=== PATIENT | female | born 1960 | race Caucasian/White ===

== ENCOUNTER → 2017-03-20 | Outpatient (CLI) | payer MEDICARE, MEDICAID ==
[~2017-03-20] MED LIST: ALTACE 10MG TAB10 MG PO; ASMANEX TW0.22 MG/A1 IH; ASPIRIN 81M81 MG/TA2 PO; CELEXA40 MG PO; DEMADEX 20MG20 M1 PO; DESYREL 50MG50 MG PO; DIFLUCAN 100MG100 MG PO; JANUMXR1000-50 PO; K-DUR20 MEQ PO; NAPROSYN500 MG PO; NORCO 325 MG-51 TAB PO; PERCOCET 325 MG1 TA2 PO; PROAIR HFA0.09 MG/AC IH; SENOKOT S 50 MG1 TAB PO; SPECTAZOLE 1% C15 GM TP; ZOCOR 20MG20 MG PO; ZYRTEC 10MG10 MG PO
== END ==
LOC: MC.RAD 14:00
DX: Z12.31 Encounter for screening mammogram for malignant neoplasm of breast (principal)
CPT/HCPCS: G0202

== ENCOUNTER → 2019-11-11 | Outpatient (CLI) | payer MEDICARE | LOC: MC.RAD 13:00 | DX: C50.912 Malignant neoplasm of unspecified site of left female breast (principal); N63.10 Unspecified lump in the right breast, unspecified quadrant; Z98.890 Other specified postprocedural states ==

== ENCOUNTER → 2020-01-16 | Outpatient (CLI) | payer MEDICARE ==
[~2020-01-16] MED LIST changes: +COLACE 100100 MG/CAP PO; +DESYREL DIVIDO150 M1 PO; +FLEXERIL 1010 MG/TAB PO; +JANUMET 1000 MG1 TA1 PO; +LEXAPRO20 MG PO; +NORCO 325 MG-7.1 TAB PO; +VITAMIN D31000 IU PO
== END ==
LOC: ZCOL.LAB 20:23
DX: T81.42XA Infection following a procedure, deep incisional surgical site, initial encounter (principal)

== ENCOUNTER → 2020-02-06 | Outpatient (CLI) | payer MEDICARE | LOC: ZCOL.LAB 16:15 | DX: T14.8XXA Other injury of unspecified body region, initial encounter (principal) ==

== ENCOUNTER → 2020-02-06 | Outpatient (CLI) | payer MEDICARE ==
[~2020-02-06] MED LIST changes: +ALDACTONE 25MG25 M1 PO; +BACTRIM DS 8001 TAB PO; +BASAGLAR K100 UNIT/1 SQ; +DULCOLAX STOOL100 MG PO; +FLONASE NASAL S16 GM NS; +FREESTYLE PREC1 EAC5 MC; +GLUCOSE TEST ST1 DEV MC; +LANCETS MC; +ONCE DAILY1 TA1 PO
== END ==
LOC: COL.LAB 08:00 → SDCO 02-09 07:30 → EDSTATUS 02-09 12:30 → SDCO 02-09 12:30
DX: Z20.828 Contact with and (suspected) exposure to other viral communicable diseases (principal)

== ENCOUNTER → 2020-02-10 | Outpatient (CLI) | payer MEDICARE ==
[~2020-02-10] MED LIST changes: -ALDACTONE 25MG25 M1 PO; -BACTRIM DS 8001 TAB PO; -BASAGLAR K100 UNIT/1 SQ; -DULCOLAX STOOL100 MG PO; -FLONASE NASAL S16 GM NS; -FREESTYLE PREC1 EAC5 MC; -GLUCOSE TEST ST1 DEV MC; -LANCETS MC; -ONCE DAILY1 TA1 PO
== END ==
LOC: ZCOL.LAB 17:14
DX: T81.42XA Infection following a procedure, deep incisional surgical site, initial encounter (principal); Z90.11 Acquired absence of right breast and nipple

== ENCOUNTER 2020-03-08 10:57 | Emergency (ER) | payer MEDICARE, MEDICAID ==
[~2020-03-08] VITALS: Ht 167.6 cm; Wt 130.0 kg
[2020-03-08 11:05] VITALS: TEMP 98.3
[2020-03-08 12:12] LABS: ALBUMIN 3.5 gm/dL (3.5-5.0); BILIRUBIN,TOTAL 1.4 mg/dL (0.0-1.0); C-REACTIVE PROTEIN 1.7 mg/dL (0.0-0.9); CALCIUM 9.3 mg/dL (8.4-10.2); CREATININE, serum 0.74 (0.52-1.25); POTASSIUM 3.8 mmol/L (3.4-5.0); TOTAL PROTEIN 7.9 gm/dL (6.4-8.2)
[2020-03-08 12:14] LABS: BASO % 0.9 % (0.0-2.0); EOS # 0.1 (0.0-0.7); EOS % 3.1 % (0-4.0); GRAN # 1.9 (1.4-6.5); GRAN % 60.3 % (42.2-75.2); HEMATOCRIT 37.9 % (37.0-47.0); HEMOGLOBIN 12.1 g/dl (12.5-16.0); LYMPH # 0.8 (1.2-3.4); LYMPH % 23.8 % (20.0-51.0); MEAN CELL VOLUME 91 fl (80.0-100.0); MEAN CORPUSCULAR HEMOGLOBIN 29 pg (27.0-31.0); MEAN CORPUSCULAR HGB CONC 32 g/dl (33.0-37.0); MEAN PLATELET VOLUME 11.1 fl (7.4-10.4); MONO # 0.4 (0.1-0.6); MONO % 11.3 % (1.7-9.3); PLATELET COUNT 83 K/mm3 (130-400); RED BLOOD COUNT 4.17 M/mm3 (4.10-5.30); REDCELL DISTRIBUTION WIDTH-CV 14.7 % (11.5-14.5)
[2020-03-08 13:52] LABS: ARTERIAL BLD GAS O2 SATURATION 96.1 % (92-100); ARTERIAL BLD GAS TCO2 CT 24.8; ARTERIAL BLOOD GAS BASE EXCESS 0.2 (-2-2); ARTERIAL BLOOD GAS HCO3 23.7 meq/L (22-26); ARTERIAL BLOOD GAS PCO2 34.8 mmHg (35-45); ARTERIAL BLOOD GAS PO2 78.7 mmHg (80-100); ARTERIAL BLOOD GAS pH 7.45 (7.35-7.45)
[2020-03-08 15:18] VITALS: BP 136/88; PULSE 87
== END 2020-03-08 15:05 | disposition home or self-care (01) ==
LOC: COL.ER 10:57
PROVIDERS: Family Medicine
DX: R18.8 Other ascites (principal); Z85.3 Personal history of malignant neoplasm of breast; Z88.8 Allergy status to other drugs, medicaments and biological substances; Z79.84 Long term (current) use of oral hypoglycemic drugs
CPT/HCPCS: Q9967

== ENCOUNTER 2020-04-03 05:39 | Observation (INO) | payer MEDICARE, MEDICAID ==
[2020-04-03] VITALS (7 sets, daily range): BP systolic 152–204; BP diastolic 59–100; PULSE 81–92; TEMP 97.7–98.1
[~2020-04-03] VITALS: Ht 167.6 cm; Wt 117.6 kg
[2020-04-03] MEDS ORDERED: FLONASE NASAL S16 GM NS (06:10)
[2020-04-03] MEDS ORDERED: ALDACTONE 25MG25 M1 PO (06:11)
[2020-04-03] MEDS ORDERED: BACTRIM DS 8001 TAB PO (06:11)
--- NOTE | 2020-04-03 06:30 | NUR ---
Patient lists an allergy to tape. Reaction is a rash. When asked if she will need paper tape for her IV, she states that the normal IV tape will be fine.
--- NOTE | 2020-04-03 06:35 | NUR ---
Contacted anesthesia associates regarding patient's blood glucose of 387. Per Ajay Suggs CRNA, hold off on starting patient's IV for surgery until her anesthesia provider (Silas Garza CRNA) arrives and can make a decision regarding her blood sugar.
--- NOTE | 2020-04-03 06:43 | NUR ---
Re-checked patient's blood glucose for confirmation, it reads 427. Patient is more lethargic in this interaction, states she is having a hard time waking up/staying awake. Attempted to call Dr. Ferrer to notify, had to leave a voicemail.
--- NOTE | 2020-04-03 06:58 | NUR ---
ASUNCION received from Silas Garza for BMP and to start pre-op NS at 150 ml/hr. Dr. Ferrer calls back and orders a hospitalist consult, which he states he will call. BMP is drawn by lab. Dr. Ferrer will come to see the patient.
[2020-04-03 07:15] LABS: CALCIUM 9.2 mg/dL (8.4-10.2); CREATININE, serum 0.92 (0.52-1.25)
--- NOTE | 2020-04-03 07:54 | NUR ---
Patient rounding completed. Patient denies any needs at this time. She awakens easily to voice and hold conversation with staff.
--- NOTE | 2020-04-03 08:10 | NUR ---
Dr. Ferrer comes and speaks with the patient. He states that the hospitalist, Dr. Stokes, will be coming to evaluate the patient.
--- NOTE | 2020-04-03 08:57 | NUR ---
Report is given to CARIE Louis at this time. She denies any questions.
--- NOTE | 2020-04-03 09:12 | NUR ---
Patient is transferred to room 344 via cart. She ambulates to the restroom in her room to void. Voids a large amount of clear, yellow urine. She settles in to her bed and care is handed off to CARIE Louis.
[2020-04-03] MEDS ORDERED: DULCOLAX STOOL100 MG PO (09:27)
[2020-04-03] MEDS ORDERED: FLEXERIL 1010 MG/TAB PO (09:30)
[2020-04-03] MEDS ORDERED: ONCE DAILY1 TA1 PO (09:34)
--- NOTE | 2020-04-03 19:33 | NUR ---
Patient sitting up in chair. Very kind. Tolerating meals, denies pain. Blood sugars slowly coming down. insulin per orders. made aware today of sugars. Patient Blood pressure elevated. Corinne Resendez notifed and home meds re ordered. Patient IV to INT. She has been up to the bathroom. Steady on her feet. Report to jacques
--- NOTE | 2020-04-03 21:09 | NUR ---
Resting in bed. Assessment complete. Lungs clear. Heart sounds normal. Bowels active x4. Pulses present throughout. Bilateral lower edema +2. INT left hand without complications. Reports generalized pain, denied need for pain medications at this time. Denies other needs. Call light in reach.
--- NOTE | 2020-04-03 21:21 | NUR ---
BP elevated. Given PRN hydralazine
[2020-04-04] VITALS (13 sets, daily range): BP systolic 126–192; BP diastolic 47–97; PULSE 71–84; TEMP 97.4–98.4
--- NOTE | 2020-04-04 00:13 | NUR ---
Resting in bed. Denies needs. Call light in reach.
--- NOTE | 2020-04-04 01:29 | NUR ---
Up to restroom and returned to bed. Denies pain. Call light in reach.
--- NOTE | 2020-04-04 03:50 | NUR ---
Resting in bed. Denies needs. Call light in reach.
--- NOTE | 2020-04-04 05:44 | NUR ---
Patient on Q4 accucheck throughout night. Insulin given as ordered. Otherwise unevnetful night. Resting in bed this Am. Call light in reach.
--- NOTE | 2020-04-04 06:50 | NUR ---
Sitting up in bed watching TV. Alert and oriented x4. Denies pain. Is hoping to get port placed today so that she can go home. Previous right breast mastectomy scar healing well, some redness noted. Patient says that this has been this way as it is healing. Denies additional needs at this time.
--- NOTE | 2020-04-04 06:52 | NUR ---
Report given to CARIE Eastman
--- NOTE | 2020-04-04 09:36 | NUR ---
Update provided to Dr. Ferrer on stabilized blood sugars. Orders received for patient to be NPO and he will contact the OR to see if they can get the patient in this afternoon for the port placement. Patient updated.
--- NOTE | 2020-04-04 10:38 | NUR ---
ARIE met with the patient to discuss discharge plan. The patient lives in [place]. She states that her son, Yasir (ph#[phone]), lives with her and is her caregiver. She reports independence with ADLs and has a cane and walker. 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 She states that she can get around fine, but if she does need assistance, her son is able to help her. The patient states that she has Medicaid [employer] and that they just approved 11 hours for her son to get paid to take care of her. ARIE notified Financial Counselor, Malini, that the patient has Medicaid. aMlini confirmed that the patient has Medicaid and it was added to her account. The patient's PCP is Dr. Sammy Gómez and she receives her medications from [facility]. The patient does not have a DPOA-HC and she was not interested in completing a DPOA-HC at this time. She was interested in a DPOA-HC form. ARIE provided. She states that she is not and has four children: Yasir Mariluz (ph#[phone]), Balaji, and Royal. The patient plans to return home with her son, Yasir, upon discharge. ARIE contacted and reviewed the above information with the patient's son, Yasir. Yasir had no concerns about the patient returning home with him. He states that he just does not want the patient in the hospital longer than she should be, because of concerns for infection/viruses. SW to follow as needed.
[2020-04-04] MEDS ORDERED: BASAGLAR K100 UNIT/1 SQ (11:40)
[2020-04-04] MEDS ORDERED: FREESTYLE PREC1 EAC5 MC (11:42)
[2020-04-04] MEDS ORDERED: GLUCOSE TEST ST1 DEV MC (11:43)
[2020-04-04] MEDS ORDERED: LANCETS MC (11:46)
--- NOTE | 2020-04-04 11:54 | NUR ---
First visit from the regulatory affairs strategy specialist. No needs right now.
--- NOTE | 2020-04-04 12:05 | NUR ---
Discuss with the patient that she the provider has placed orders to the pharmacy for long acting insulin and glucometer. Patient says that she has taken care of diabetics in the past and knows how to perform an accu check and administering insulin. Allow patient at this time to show this nurse how she will administer insulin at home, patient able to show appropriate technique. Explain that her blood pressure was elevated so I would come back to recheck to see if medication will need to be given for her blood pressure. Patient says that she really hopes to go home after getting the port placed because she has an energy drink and a pack of cigarettes waiting on her. Discuss impact of use of tobacco and energy drinks. Patient says that she is aware that she should not use either but she still plans on using them. Denies additional needs at this time.
--- NOTE | 2020-04-04 13:00 | NUR ---
BP remains elevated. Medication administered as prescribed. IV site in left hand leaking, will attempt restart at this time.
--- NOTE | 2020-04-04 15:00 | NUR ---
Patient to surgery via bed at this time.
[2020-04-04] MEDS ORDERED: NORCO 325 MG-7.1 TAB PO (16:17)
--- NOTE | 2020-04-04 16:22 | NUR ---
Patient returns to room from PACU via bed. Denies pain. Blood noted on pillow, none coming from incision sites to right upper chest or right side of neck. Patient cleaned at this time. Patient requests to sit on edge of bed. Assisted to sitting on edge of bed. Is aware to not get out of bed on own, to use call light for help. Requests a diet pepsi, will provide. Denies additional needs.
--- NOTE | 2020-04-04 18:27 | NUR ---
Review all discharge instructions with the patient. Denies questions and signs discharge paperwork. JANE Olson, assisting patient in getting dressed at this time. Spoke with Mariluz, patient ride, and she will head to hospital to pick patient up and will meet patient in ER entrance.
--- NOTE | 2020-04-04 18:35 | NUR ---
Patient has all belongings and is assisted out to POV via wheel chair by JANE Olson.
== END 2020-04-04 18:43 | disposition home or self-care (01) ==
LOC: SDCO 05:39 → SURG 09:15
PROVIDERS: ADMIT Surgery
DX: C50.911 Malignant neoplasm of unspecified site of right female breast (principal); E11.69 Type 2 diabetes mellitus with other specified complication; J44.9 Chronic obstructive pulmonary disease, unspecified; F32.9 Major depressive disorder, single episode, unspecified; E78.5 Hyperlipidemia, unspecified; I10 Essential (primary) hypertension; E11.42 Type 2 diabetes mellitus with diabetic polyneuropathy; Z86.14 Personal history of Methicillin resistant Staphylococcus aureus infection; Z90.5 Acquired absence of kidney; Z90.11 Acquired absence of right breast and nipple; Z79.82 Long term (current) use of aspirin; Z79.84 Long term (current) use of oral hypoglycemic drugs; Z88.8 Allergy status to other drugs, medicaments and biological substances; Z90.49 Acquired absence of other specified parts of digestive tract; Z91.018 Allergy to other foods; Z85.828 Personal history of other malignant neoplasm of skin; G89.29 Other chronic pain
CPT/HCPCS: 99222; 99232-AI; C1788; G0378; G0379; J0360; J0690; J1815; J2405; J2704; J3010; J7030

== ENCOUNTER → 2020-07-24 | Outpatient (CLI) | payer MEDICARE, MEDICAID ==
[~2020-07-24] MED LIST changes: +ALDACTONE 25MG25 M1 PO; +BACTRIM DS 8001 TAB PO; +BASAGLAR K100 UNIT/1 SQ; +DULCOLAX STOOL100 MG PO; +FLONASE NASAL S16 GM NS; +FREESTYLE PREC1 EAC5 MC; +GLUCOSE TEST ST1 DEV MC; +LANCETS MC; +ONE-A-DAY ESSE1 EACH PO
== END ==
LOC: COL.VAS 12:02
DX: C50.811 Malignant neoplasm of overlapping sites of right female breast (principal); M79.89 Other specified soft tissue disorders

== ENCOUNTER 2020-09-13 13:30 | Outpatient (RCR) | payer MEDICARE, MEDICAID | END 2020-11-01 13:35 | disposition home or self-care (01) | LOC: WSOT 13:30 | DX: R20.0 Anesthesia of skin (principal); R27.8 Other lack of coordination ==

== ENCOUNTER 2020-09-21 11:00 | Outpatient (RCR) | payer MEDICARE, MEDICAID | END 2020-10-17 10:43 | disposition home or self-care (01) | LOC: WSPT 11:00 | DX: R29.6 Repeated falls (principal) ==

== ENCOUNTER → 2020-10-09 | Outpatient (CLI) | payer MEDICARE, MEDICAID ==
[~2020-10-09] VITALS: Ht 167.6 cm; Wt 106.3 kg
[2020-10-09 13:44] VITALS: BP 102/67; PULSE 58
--- NOTE | 2020-10-09 14:45 | NUR ---
pt returns with US no fluid found in abdomen. Procedure cancelled.
== END ==
LOC: COL.RAD 13:01
DX: K74.69 Other cirrhosis of liver (principal)

== ENCOUNTER → 2020-11-07 | Outpatient (CLI) | payer MEDICARE, MEDICAID | LOC: ZCOL.LAB 18:13 | DX: L03.039 Cellulitis of unspecified toe (principal) ==

== ENCOUNTER 2021-05-24 13:06 | Day surgery (SDC) | payer MEDICARE, MEDICAID ==
[~2021-05-24] VITALS: Ht 167.6 cm; Wt 127.6 kg
[2021-05-24] MEDS ORDERED: ARIMIDEX1 MG PO (13:24)
[2021-05-24] MEDS ORDERED: CEPHALEXIN500 M1 PO (13:25)
[2021-05-24] MEDS ORDERED: ASMANEX HF200 MCG/Ac IH (13:25)
[2021-05-24] MEDS ORDERED: STOOL SOFTENER100 M2 PO (13:27)
[2021-05-24] MEDS ORDERED: NEURONTIN300 MG/CAP PO (13:28)
[2021-05-24] MEDS ORDERED: CORGARD20 MG PO (13:30)
[2021-05-24] MEDS ORDERED: NAPROSYN500 MG PO (13:30)
[2021-05-24] MEDS ORDERED: ZOFRAN 4MG T4 MG/TAB PO (13:31)
[2021-05-24] MEDS ORDERED: XARELTO20 MG PO (13:33)
[2021-05-24 14:09] VITALS: BP 148/86; PULSE 88; TEMP 98.1
--- NOTE | 2021-05-24 14:22 | NUR ---
Patient's blood sugar is 61 results relayed to TIANA Arroyo. Orders for D50 to be given.
[2021-05-24 15:15] VITALS: BP 161/105; PULSE 93; TEMP 97.4
--- NOTE | 2021-05-24 15:15 | NUR ---
Patient arrived back into bay 1. Patient's blood sugar checked and resulted at 80. Patient requesting toast and coffee. Report received from CARIE Wong. Patient went to restroom.
[2021-05-24 15:30] VITALS: BP 143/97; PULSE 95
--- NOTE | 2021-05-24 15:30 | NUR ---
Patient's son arrived. Patient doing well tolerating food and drink. Denies need at this time.
[2021-05-24 15:45] VITALS: BP 141/69; PULSE 91
[2021-05-24 16:00] VITALS: BP 143/97; PULSE 92
--- NOTE | 2021-05-24 16:15 | NUR ---
Dr. Travis in to see patient. Questions answered.
--- NOTE | 2021-05-24 16:30 | NUR ---
Patient's IV removed with no complications. Went through discharge instructions with patient and son. Questions answred. Patient got dressed. Patient escorted to patient entrance via wheelchair. Son along side. Patient got into personal vehicle and left in the care of her son.
== END 2021-05-24 16:30 | disposition home or self-care (01) ==
LOC: SDCO 13:06
DX: K74.60 Unspecified cirrhosis of liver (principal); I85.10 Secondary esophageal varices without bleeding; D12.3 Benign neoplasm of transverse colon; D50.9 Iron deficiency anemia, unspecified; K57.30 Diverticulosis of large intestine without perforation or abscess without bleeding; K92.1 Melena; J44.9 Chronic obstructive pulmonary disease, unspecified; M19.90 Unspecified osteoarthritis, unspecified site; M54.9 Dorsalgia, unspecified; I82.621 Acute embolism and thrombosis of deep veins of right upper extremity; I12.9 Hypertensive chronic kidney disease with stage 1 through stage 4 chronic kidney disease, or unspecified chronic kidney disease; N18.30 Chronic kidney disease, stage 3 unspecified; E11.22 Type 2 diabetes mellitus with diabetic chronic kidney disease; E78.5 Hyperlipidemia, unspecified; E11.42 Type 2 diabetes mellitus with diabetic polyneuropathy; E55.9 Vitamin D deficiency, unspecified; G89.29 Other chronic pain; F32.A Depression, unspecified; F17.210 Nicotine dependence, cigarettes, uncomplicated; Z79.4 Long term (current) use of insulin; Z79.899 Other long term (current) drug therapy; Z85.3 Personal history of malignant neoplasm of breast; Z90.710 Acquired absence of both cervix and uterus
CPT/HCPCS: J2704; J7120

== ENCOUNTER 2021-06-28 10:37 | Day surgery (SDC) | payer MEDICARE, MEDICAID ==
[~2021-06-28] VITALS: Ht 170.2 cm; Wt 122.5 kg
[~2021-06-28 10:37] MED LIST changes: +ARIMIDEX1 MG PO; +ASMANEX HF200 MCG/Ac IH; +CEPHALEXIN500 M1 PO; +CORGARD20 MG PO; +NEURONTIN300 MG/CAP PO; +STOOL SOFTENER100 M2 PO; +XARELTO20 MG PO; +ZOFRAN 4MG T4 MG/TAB PO
[2021-06-28 12:34] VITALS: BP 136/82; PULSE 90; TEMP 98.7
[2021-06-28 13:25] VITALS: BP 130/58; PULSE 83
--- NOTE | 2021-06-28 13:25 | NUR ---
pt to bay 9 via cart, recovered on cart, sleepy, but eye open and talks to son and staff, takes soda and muffin, no c/o pain, son remains in room with pt
[2021-06-28 13:40] VITALS: BP 164/99; PULSE 93
[2021-06-28 13:55] VITALS: BP 168/83; PULSE 90
--- NOTE | 2021-06-28 13:55 | NUR ---
pt sitting in chair, iv d'cd intact and dressed, waits on
--- NOTE | 2021-06-28 14:10 | NUR ---
Dr kang see pt and son, then reviewed discharge inst. on patient with banding and also with moderate sedation with verbal understanding, son states will stay with his mom for short time when going home, pt discharged via w/c to car
== END 2021-06-28 14:10 | disposition home or self-care (01) ==
LOC: SDCO 10:37
DX: I85.00 Esophageal varices without bleeding (principal); K74.60 Unspecified cirrhosis of liver; R18.8 Other ascites
CPT/HCPCS: J2704; J7120

== ENCOUNTER 2021-07-26 06:18 | Day surgery (SDC) | payer MEDICARE, MEDICAID ==
[~2021-07-26] VITALS: Ht 167.6 cm; Wt 113.6 kg
[2021-07-26 06:39] VITALS: BP 115/55; PULSE 99; TEMP 98.1
[2021-07-26 07:45] VITALS: BP 123/53; PULSE 104
[2021-07-26 08:00] VITALS: BP 131/56; PULSE 102; TEMP 98.5
[2021-07-26 08:15] VITALS: BP 106/59; PULSE 101
--- NOTE | 2021-07-26 08:20 | NUR ---
PT ARRIVED TO [facility] AT 0745, VSS. MILD NAUSEA NOTED, ZOFRAN ADMINISTERED, WILL CONTINUE TO MONITOR.
--- NOTE | 2021-07-26 08:38 | NUR ---
PT REPORTS NAUSEA IS RESOLVED AND IS READY FOR DISCHARGE, VSS. IV REMOVED WITH NO COMPLICATIONS, CATHETER INTACT. PT DC VIA WHEELCHAIR ACCOMPANIED BY HER SON IVANNA.
[2021-07-26 08:45] VITALS: BP 118/78; PULSE 101
== END 2021-07-26 08:52 | disposition home or self-care (01) ==
LOC: SDCO 06:18
DX: K74.60 Unspecified cirrhosis of liver (principal); I85.10 Secondary esophageal varices without bleeding
CPT/HCPCS: J2405; J2704; J7030

== ENCOUNTER 2021-08-02 12:36 | Inpatient (IN) | payer MEDICARE, MEDICAID ==
[~2021-08-02] VITALS: Ht 165.1 cm; Wt 110.7 kg
[2021-08-02 13:49] LABS: HEMOGLOBIN 10.7 g/dl (12.5-16.0); MEAN CELL VOLUME 77 fl (80.0-100.0); MEAN CORPUSCULAR HEMOGLOBIN 25 pg (27-31); MEAN CORPUSCULAR HGB CONC 32 g/dl (33.0-37.0); MEAN PLATELET VOLUME 9.9 fl (7.4-10.4); PLATELET COUNT 157 K/mm3 (130-400); RED BLOOD COUNT 4.29 M/mm3 (4.10-5.30); REDCELL DISTRIBUTION WIDTH-CV 19.5 % (11.5-14.5)
[2021-08-02 14:05] LABS: BAND 4 % (0-10); LYMPHOCYTE 10 % (20.0-51.0); NEUTROPHILS 75 % (42.0-75.2); PLATELET ESTIMATE NORMAL (NORMAL)
[2021-08-02 14:06] LABS: ANISOCYTOSIS 2+; HYPOCHROMIA 1+; MICROCYTOSIS 1+
[2021-08-02 14:08] LABS: ALBUMIN 2.2 gm/dL (3.4-4.8); BILIRUBIN,TOTAL 3.8 mg/dL (0.2-1.2); CALCIUM 9.7 mg/dL (8.4-10.2); CREATININE, serum 2.46 mg/dL (0.57-1.11); POTASSIUM 5.1 mmol/L (3.5-4.5)
[2021-08-02 14:11] LABS: LACTIC ACID 2.2 mmol/L (0.5-2.0)
--- NOTE | 2021-08-02 20:00 | NUR ---
1950 PATIENT ARRIVED TO ROOM VIA STRETCHER WITH NURSE AND TECH IN ATTENDANCE, TRANSFERRED TO BED WITH 3 ASSIST AND SLIDE BOARD, ASSESSMENT COMPLETED, MEDICATION LIST COMPLETED VERIFIED MEDS WITH SONIVANNA FROM PAPER IN CHART. PER REPORT FROM CARIE SOMERS PATIENT HAD NOT URINATED IN ED. PATIENT NOTED TO BE DROWSY, BUT AWAKENS TO VOICE ORIENTED TO PERSON, PLACE AND YEAR BUT NOT MONTH AND FOR SITUATION STATES THAT SHE CAME TO THE HOSPITAL BECAUSE SHE "COULDN'T CARE FOR HERSELF." ASK PATIENT IF SHE FELT LIKE SHE NEEDED TO URINATE AND SHE SAID YES, PLACED PATIENT ON BEDPAN AT THIS TIME. NOTED DURING ASSESSMENT PATIENT HAS MULTIPLE WOUNDS ON BILATERAL HANDS AND ARMS IN VARIOUS STAGES OF HEALING FROM PINK TO SCABBED OVER, LOWER LEGS ARE DRY AND FLAKY WITH SCATTERED SCABS, PANNUS IS REDDENED WITH OPEN MOIST ROUND WOUNDS AND BILATERAL GROIN SITES ARE REDDENED AND MOIST.
[2021-08-02 20:17] VITALS: BP 134/63; PULSE 104; TEMP 98.6
[2021-08-02] MEDS ORDERED: DEMADEX 20MG20 M1 PO (20:55)
[2021-08-02] MEDS ORDERED: IMITREX 25MG TA25 MG PO ×2 (20:57→20:59)
[2021-08-02] MEDS ORDERED: ALDACTONE 25MG25 M1 PO (21:03)
[2021-08-02] MEDS ORDERED: NAPROSYN500 MG PO (21:05)
[2021-08-02] MEDS ORDERED: FLEXERIL 1010 MG/TAB PO (21:08)
[2021-08-02] MEDS ORDERED: ASMANEX TW0.22 MG/A1 INH (21:11)
--- NOTE | 2021-08-02 21:30 | NUR ---
PATIENT BLADDER SCANNED FOR GREATER THAN 450ML NOTIFIED NUBIA BHARDWAJ AND ORDER GIVEN TO STRAIGHT CATH FOR UA SAMPLE
[2021-08-02 21:39] LABS: COLLECTION METHOD CATHETER
[2021-08-02 21:44] LABS: PH 5 (5-8); SQUAMOUS EPITHELIAL 0-2 /hpf (0-10); URINE APPEARANCE Clear (CLEAR/HAZY); URINE BACTERIA Rare /hpf (NONE SEEN); URINE BILIRUBIN Negative (NEGATIVE); URINE BLOOD Negative (NEGATIVE); URINE COLOR Yellow (YELLOW); URINE GLUCOSE Negative (NEGATIVE); URINE KETONE Negative (NEGATIVE); URINE LEUKOCYTE ESTERASE Negative (NEGATIVE); URINE NITRATE Positive (NEGATIVE); URINE PROTEIN(semi-quant) Negative (NEGATIVE); URINE RBC 0-2 /hpf (0-2); URINE UROBILINOGEN >=4.0 (NEGATIVE)
[2021-08-02] MEDS ORDERED: LACTULOSE10 GM/153 PO (21:51)
[2021-08-02] MEDS ORDERED: MIRALAX PA17 GM/Dose PO (21:52)
[2021-08-02 23:45] VITALS: BP 127/60; PULSE 98; TEMP 98
--- NOTE | 2021-08-03 01:35 | NUR ---
Vancomycin Initial Dosing Pharmacy Note Ordering provider: Phuong Beard DO Indication/duration: Cellulitis x 7 days Relevant comorbidities: CKD, HTN, DM LABS: WBC = 11.5, SCr = 2.46 Recommendation: Will draw troughs and follow levels. Loading dose: 2 grams Maintenance dose: 750 mg every 24 hours Trough goal: 10-15 ug/mL
[2021-08-03 04:02] VITALS: BP 133/71; PULSE 103; TEMP 98.4
--- NOTE | 2021-08-03 04:31 | NUR ---
avila catheter inserted per orders 16fr with 10cc balloon, patient tolerated well immediate return of dark yellow urine noted to bedside drainage bag.
[2021-08-03 06:25] LABS: BASO # 0.1 K/mm3 (0.0-0.2); BASO % 1.1 % (0.0-2.0); EOS # 0.1 K/mm3 (0.0-0.7); EOS % 1.1 % (0.0-4.0); GRAN # 4.5 K/mm3 (1.4-6.5); GRAN % 64.1 % (42.2-75.2); LYMPH # 0.9 K/mm3 (1.2-3.4); LYMPH % 13.2 % (20.0-51.0); MEAN CELL VOLUME 79 fl (80.0-100.0); MEAN CORPUSCULAR HGB CONC 32 g/dl (33.0-37.0); MEAN PLATELET VOLUME 9.8 fl (7.4-10.4); MONO # 1.4 K/mm3 (0.1-0.6); MONO % 19.2 % (1.7-9.3); PLATELET COUNT 127 K/mm3 (130-400); RED BLOOD COUNT 3.68 M/mm3 (4.10-5.30); REDCELL DISTRIBUTION WIDTH-CV 19.8 % (11.5-14.5)
[2021-08-03 06:33] LABS: HEMATOCRIT 28.9 % (37.0-47.0); HEMOGLOBIN 9.1 g/dl (12.5-16.0); MEAN CORPUSCULAR HEMOGLOBIN 25 pg (27-31)
[2021-08-03 06:48] LABS: CREATININE, serum 1.83 mg/dL (0.57-1.11); POTASSIUM 4.4 mmol/L (3.5-4.5)
[2021-08-03 08:00] VITALS: BP 149/69; PULSE 97; TEMP 98.1
[2021-08-03 12:21] VITALS: BP 117/63; PULSE 79; TEMP 98
--- NOTE | 2021-08-03 14:59 | NUR ---
Arie met with pt to complete intake. The pt lives with her son, Britton [phone] [place] [facility]. Clifford GREGORY was present. The pt requires assistance with ADLs and uses a walker and wheelchair. [facility] The Pt was interested in DPOA info. ARIE asked standard questions to pt for mentally competent and she answered correctly. ARIE and CARIE Torres witnessed pt sign agents clifford and britton her agrents. DC: Home with, son Britton (caregiver).
[2021-08-03 16:26] VITALS: BP 99/55; PULSE 58; TEMP 98.1
[2021-08-03 20:20] VITALS: BP 113/53; PULSE 68; TEMP 99.2
[2021-08-03 23:58] VITALS: BP 101/51; PULSE 64; TEMP 98.3
[2021-08-04 04:27] VITALS: BP 102/60; PULSE 65; TEMP 97.5
[2021-08-04 06:10] LABS: BASO # 0.1 K/mm3 (0.0-0.2); EOS # 0.1 K/mm3 (0.0-0.7); EOS % 2.7 % (0.0-4.0); GRAN # 2.7 K/mm3 (1.4-6.5); GRAN % 55.4 % (42.2-75.2); LYMPH % 20.6 % (20.0-51.0); MEAN CELL VOLUME 81 fl (80.0-100.0); MEAN CORPUSCULAR HGB CONC 30 g/dl (33.0-37.0); MEAN PLATELET VOLUME 9.8 fl (7.4-10.4); MONO # 0.9 K/mm3 (0.1-0.6); MONO % 19.1 % (1.7-9.3); PLATELET COUNT 129 K/mm3 (130-400); RED BLOOD COUNT 3.62 M/mm3 (4.10-5.30); REDCELL DISTRIBUTION WIDTH-CV 20.3 % (11.5-14.5)
--- NOTE | 2021-08-04 06:11 | NUR ---
PATIENT UP TO CHAIR FOR 2 HOURS THIS SHIFT. NO NEW ISSUES NOTED OR REPORTED.
[2021-08-04 06:14] LABS: HEMATOCRIT 29.3 % (37.0-47.0); HEMOGLOBIN 8.8 g/dl (12.5-16.0); MEAN CORPUSCULAR HEMOGLOBIN 24 pg (27-31)
[2021-08-04 06:23] LABS: INR 1.4 (0.8-3.0); PROTHROMBIN TIME 15.2 SECONDS (9.7-12.8)
[2021-08-04 06:30] LABS: ALBUMIN 1.9 gm/dL (3.4-4.8); BILIRUBIN,TOTAL 1.9 mg/dL (0.2-1.2); CALCIUM 8.9 mg/dL (8.4-10.2); CREATININE, serum 1.66 mg/dL (0.57-1.11); POTASSIUM 4.4 mmol/L (3.5-4.5); TOTAL PROTEIN 6.9 gm/dL (6.2-8.1)
[2021-08-04 06:36] LABS: BILIRUBIN,DIRECT 1.4 mg/dL (0.0-0.5)
[2021-08-04 07:46] VITALS: BP 112/46; PULSE 70; TEMP 98.2
--- NOTE | 2021-08-04 08:20 | NUR ---
PT LAYING SUPINE IN BED ON ROOM AIR. PT STATES THAT SHE WOULD LIKE TO SIT UP ON THE SIDE OF THE BED. ASSITED PT TO MOVE ONTO SIE OF BED AND PUT TRAY INFRONT OF HER SO SHE COULD GET BREAKFAST. MOLINA IS DRAINING AT BEDSIDE CLEAR YELLOW FLUID. INNER DRY IS IN PLACE IN ABD FOLDS. PT STATES NO PAIN OR NEEDS AT THIS TIME. CALL LIGHT IS WITHIN REACH.
--- NOTE | 2021-08-04 11:19 | NUR ---
TRACY WAS DCd per dr noriega. INFORMED PT THE IMPORTANCE OF GOING TO THE BATHROOM AND TO KEEP HER DRY. PT VOICED UNDERSTANDING. 250ML WAS EMPITIED OUT OF TRACY AND [facility] PROVIDED.
[2021-08-04 11:27] VITALS: BP 95/28; PULSE 62; TEMP 98.4
[2021-08-04 13:20] VITALS: BP 98/38; PULSE 65; TEMP 97.7
[2021-08-04 16:00] VITALS: BP 99/42; PULSE 64; TEMP 98.3
--- NOTE | 2021-08-04 18:10 | NUR ---
PT SITTING UP IN CHAIR WITH SONS AT BEDSIDE. PT STATES THAT SHE IS HAVING SOME PAIN IN HER ABD FOLDS. PAIN PILL WAS GIVEN TO PT. PT ALSO STATES THAT SHE IS HAVING SOME HEART BURN AND WOULD LIKE SOME TUMS. CALLED AND ORDER WAS PUT IN FOR TUMS. MEDICATION WAS GIVEN TO PT. MOLINA WAS DCd TODAY AND PT HAS BEEN ABLE TO VOID SINCE. PT STATES NO OTHER NEEDS AT THIS TIME. CALL LIGHT IS WITHIN REACH.
[2021-08-04 20:08] VITALS: BP 101/49; PULSE 65; TEMP 98.7
--- NOTE | 2021-08-04 21:23 | NUR ---
Patient assessed around 2049. Alert and oriented x 4, and able to make needs known. High fall risk precautions in place. Denies having pain and discomfort, except to bottom. Repositioned in bed which helped. Redness to bottom, blanchable, with small bruise to right buttock. PICC to RUE. Denies SOB and dyspnea. LS CTA in upper lobes, diminished in lower. HRR. BSAx4. Excoriation to abdominal and groin folds, with blisters present. Discoloration to BLE, 1+ edema. Refusing SCDs. Patient voices no questions, needs, or concerns at this time. In bed with call light within reach. Bed alarm on.
[2021-08-05 00:39] VITALS: BP 105/50; PULSE 65; TEMP 97.9
[2021-08-05 03:43] VITALS: BP 96/57; PULSE 67; TEMP 98.1
--- NOTE | 2021-08-05 05:48 | NUR ---
Patient has been resting in bed with call light within reach. Has needed no pain medications this shift. Ambulated to bathroom with SBA with use of walker and voided. Denies pain and discomfort with urination. Voices no questions, needs, or concerns at this time. Sitting on side of bed as requested with call light within reach. Bed alarm on.
[2021-08-05 06:42] LABS: BASO # 0.1 K/mm3 (0.0-0.2); BASO % 1.9 % (0.0-2.0); EOS # 0.1 K/mm3 (0.0-0.7); EOS % 2.5 % (0.0-4.0); GRAN # 2.5 K/mm3 (1.4-6.5); GRAN % 52.8 % (42.2-75.2); LYMPH # 1.1 K/mm3 (1.2-3.4); LYMPH % 23.1 % (20.0-51.0); MEAN CELL VOLUME 81 fl (80.0-100.0); MEAN CORPUSCULAR HGB CONC 31 g/dl (33.0-37.0); MEAN PLATELET VOLUME 10.3 fl (7.4-10.4); MONO # 0.9 K/mm3 (0.1-0.6); MONO % 19.1 % (1.7-9.3); PLATELET COUNT 125 K/mm3 (130-400); RED BLOOD COUNT 3.53 M/mm3 (4.10-5.30); REDCELL DISTRIBUTION WIDTH-CV 20.6 % (11.5-14.5)
[2021-08-05 06:54] LABS: HEMATOCRIT 28.4 % (37.0-47.0); HEMOGLOBIN 8.7 g/dl (12.5-16.0); MEAN CORPUSCULAR HEMOGLOBIN 25 pg (27-31)
[2021-08-05 07:06] LABS: ALBUMIN 1.9 gm/dL (3.4-4.8); BILIRUBIN,TOTAL 1.7 mg/dL (0.2-1.2); CALCIUM 8.5 mg/dL (8.4-10.2); CREATININE, serum 1.69 mg/dL (0.57-1.11); POTASSIUM 4.6 mmol/L (3.5-4.5)
[2021-08-05 07:36] VITALS: BP 89/33; PULSE 64; TEMP 97.7
--- NOTE | 2021-08-05 08:05 | NUR ---
SPOKE TO NUBIA LE. INFORMED HER OF PTS LOW BP. STATES TO HOLD CORGARD THIS AM AND RECHECK LATER. MEDICATION WAS HELD AND WILL RECHECK IN AN HOUR.
--- NOTE | 2021-08-05 08:20 | NUR ---
PT SITTING UP ON SIDE OF BED ON ROOM AIR. PT STATES THAT HE IS NOT HAVING ANY PAIN AT THIS TIME. "IT ONLY HURTS ON MY BELLY WHEN I MOVE A BUNCH." PT STATES THAT SHE WOULD LIKE TO HAVE A CUP OF ICE. THIS WAS GIVEN TO PT. PT STATES NO OTHER NEEDS AT THIS TIME. ABD WAS CLEANED, DRIED AND POWDER APPLIED. CALL LIGHT IS WITHIN REACH.
[2021-08-05 11:23] VITALS: BP 95/34; PULSE 63; TEMP 97.7
--- NOTE | 2021-08-05 13:04 | NUR ---
First visit from the applied science and technologies dean. No needs right now
[2021-08-05 15:34] VITALS: BP 101/35; PULSE 101; TEMP 97.2
--- NOTE | 2021-08-05 19:17 | NUR ---
PT SITTING UP IN BED FINISHING DINNER. ON ROOM AIR. PT STATES NO PAIN OR NEEDS AT THIS TIME. CALL LIGHT IS WITHIN REACH.
[2021-08-05 19:45] VITALS: BP 94/33; PULSE 67; TEMP 98
[2021-08-06 00:03] VITALS: BP 99/47; PULSE 63; TEMP 97.1
--- NOTE | 2021-08-06 03:15 | NUR ---
Report received from day shift nurse. Patient here due to sepsis and cellulitis. A&Ox3 and pleasant.Full body assessment completed and vital signs have been WNL, with exception of BP being low. Patient received albumin on 08/05 to combat this; another order from MD Michele for albumin was entered at approximately 0135. Contacted NUBIA Owen and she informed this nurse to hold the albumin until further notice. Consent needs to be obtained before the next albumin administration. Patient has had no complaints of pain thus far this shift. Will continue to monitor, call light within reach.
[2021-08-06 05:12] VITALS: BP 94/45; PULSE 68; TEMP 97.3
[2021-08-06 06:21] LABS: BASO # 0.1 K/mm3 (0.0-0.2); BASO % 2.1 % (0.0-2.0); EOS # 0.1 K/mm3 (0.0-0.7); EOS % 3.3 % (0.0-4.0); GRAN # 1.7 K/mm3 (1.4-6.5); GRAN % 51.4 % (42.2-75.2); LYMPH # 0.9 K/mm3 (1.2-3.4); LYMPH % 25.1 % (20.0-51.0); MEAN CELL VOLUME 80 fl (80.0-100.0); MEAN CORPUSCULAR HGB CONC 31 g/dl (33.0-37.0); MEAN PLATELET VOLUME 9.9 fl (7.4-10.4); MONO # 0.6 K/mm3 (0.1-0.6); MONO % 17.8 % (1.7-9.3); PLATELET COUNT 116 K/mm3 (130-400); RED BLOOD COUNT 3.42 M/mm3 (4.10-5.30); REDCELL DISTRIBUTION WIDTH-CV 21.1 % (11.5-14.5)
[2021-08-06 06:24] LABS: HEMATOCRIT 27.4 % (37.0-47.0); HEMOGLOBIN 8.5 g/dl (12.5-16.0); MEAN CORPUSCULAR HEMOGLOBIN 25 pg (27-31)
[2021-08-06 06:48] LABS: ALBUMIN 2.2 gm/dL (3.4-4.8); BILIRUBIN,TOTAL 1.8 mg/dL (0.2-1.2); CALCIUM 8.6 mg/dL (8.4-10.2); CREATININE, serum 1.58 mg/dL (0.57-1.11); POTASSIUM 4.6 mmol/L (3.5-4.5); TOTAL PROTEIN 6.9 gm/dL (6.2-8.1)
[2021-08-06 08:00] VITALS: BP 100/38; PULSE 66; TEMP 97.4
--- NOTE | 2021-08-06 10:09 | NUR ---
The patient may be able to discharge later today or tomorrow. SW met with the patient to review discharge plan. The patient confirms she plans on returning home with her son. She states she is excited to get home. SW presented and read the IM form outloud to her. The patient verbalized understanding and gave ARIE approval to sign the form on her behalf. ARIE provided her with a copy. No additional needs at this time.
[2021-08-06 10:39] VITALS: BP 102/36; PULSE 62
[2021-08-06] MEDS ORDERED: DOXYCYCLINE 10100 MG PO (12:52)
[2021-08-06] MEDS ORDERED: AMOXICILLIN/CLA1 TA1 PO (12:52)
--- NOTE | 2021-08-06 14:17 | NUR ---
Dscharge paperwork reviewed with the patient and family. Patient verbalized an understanding to follow doctors orders. Son went home to get the patient a change of clothes. No further needs expressed. Call light within reach
--- NOTE | 2021-08-06 15:39 | NUR ---
Discharge paperwork reviewed with the patient and son at the bedside. Patient transfered by wheelchair to the vehicle. No further needs expressed. Personal belongings with the patient.
== END 2021-08-06 15:41 | disposition home or self-care (01) | DRG 872 ==
LOC: COL.ER 12:36 → MEDICAL 16:47
PROVIDERS: Emergency Medicine; Physician Assistant; Student in an Organized Health Care Education/Training Program; ADMIT Internal Medicine
PROC: 02HV33Z Insertion of Infusion Device into Superior Vena Cava, Percutaneous Approach (ICD-10-PCS; principal; 2021-08-02)
DX: A41.9 Sepsis, unspecified organism (principal); R18.8 Other ascites; L03.311 Cellulitis of abdominal wall; N17.9 Acute kidney failure, unspecified; K76.6 Portal hypertension; K74.60 Unspecified cirrhosis of liver; R65.20 Severe sepsis without septic shock; K58.9 Irritable bowel syndrome, unspecified; F17.210 Nicotine dependence, cigarettes, uncomplicated; Z66 Do not resuscitate; K75.81 Nonalcoholic steatohepatitis (NASH); N18.9 Chronic kidney disease, unspecified; I12.9 Hypertensive chronic kidney disease with stage 1 through stage 4 chronic kidney disease, or unspecified chronic kidney disease; E11.22 Type 2 diabetes mellitus with diabetic chronic kidney disease; E78.5 Hyperlipidemia, unspecified; F32.A Depression, unspecified; G47.00 Insomnia, unspecified; E87.5 Hyperkalemia; E11.42 Type 2 diabetes mellitus with diabetic polyneuropathy; Z20.822 Contact with and (suspected) exposure to COVID-19; Z85.3 Personal history of malignant neoplasm of breast; Z85.53 Personal history of malignant neoplasm of renal pelvis; Z79.4 Long term (current) use of insulin; Z23 Encounter for immunization
CPT/HCPCS: 99223-AI; 99232-AI; 99233-AI; 99239; C1751; J0696; J1644; J3370; J7030; J7040; J7050; J7120; P9047

== ENCOUNTER 2021-08-23 08:10 | Day surgery (SDC) | payer MEDICARE, MEDICAID ==
[~2021-08-23] VITALS: Ht 165.1 cm; Wt 110.5 kg
[~2021-08-23 08:10] MED LIST changes: +AMOXICILLIN/CLA1 TA1 PO; +ASMANEX TW0.22 MG/A1 INH; +DOXYCYCLINE 10100 MG PO; +IMITREX 25MG TA25 MG PO; +LACTULOSE10 GM/153 PO; +MIRALAX PA17 GM/Dose PO
[2021-08-23 09:55] VITALS: BP 112/68; PULSE 84; TEMP 97.7
--- NOTE | 2021-08-23 09:55 | NUR ---
Pt returned from procedure,report from nurse.
[2021-08-23 10:00] VITALS: BP 137/72; PULSE 81
[2021-08-23 10:15] VITALS: BP 134/70; PULSE 80
[2021-08-23 10:30] VITALS: BP 125/62; PULSE 80
--- NOTE | 2021-08-23 10:50 | NUR ---
Discharge instructions given to pt.pt verbalizes understanding.Pt escorted out via wheelchair by this nurse.
[2021-08-23 14:38] VITALS: BP 113/53; PULSE 84; TEMP 97.8
== END 2021-08-23 10:57 ==
LOC: SDCO 08:10
DX: I85.00 Esophageal varices without bleeding (principal); K74.60 Unspecified cirrhosis of liver; I10 Essential (primary) hypertension; K21.9 Gastro-esophageal reflux disease without esophagitis; Z85.3 Personal history of malignant neoplasm of breast; Z85.72 Personal history of non-Hodgkin lymphomas; Z85.528 Personal history of other malignant neoplasm of kidney
CPT/HCPCS: J2704; J7120

== ENCOUNTER 2022-03-07 12:48 | Day surgery (SDC) | payer MEDICARE, MEDICAID ==
[~2022-03-07] VITALS: Ht 170.2 cm; Wt 113.7 kg
[2022-03-07] MEDS ORDERED: NEURONTIN100 MG/CAP PO (13:41)
--- NOTE | 2022-03-07 14:07 | NUR ---
1405 - RN verified that IV tape is OK to use; PT states IV tape used "is the only kind I can use".
[2022-03-07 14:23] VITALS: BP 113/51; PULSE 88; TEMP 97.1
[2022-03-07 15:05] VITALS: BP 112/52; PULSE 84; TEMP 97.1
[2022-03-07 15:20] VITALS: BP 123/55; PULSE 84
[2022-03-07 15:35] VITALS: BP 120/52; PULSE 82
--- NOTE | 2022-03-07 15:50 | NUR ---
1505 RETURNS TO ROOM 4. AMBULATES FROM CART TO RECLINER WITH STANDBY ASSIST. MONITORS ON, VITAL SIGNS OBTAINED. ALERT. DENIES ABD PAIN NAUSEA OR DYSPHAGIA. SON HERE. CALL LIGHT AT SIDE. 1530 TOLERATES PO JUICE WITHOUT NAUSEA. SWALLOWS WITHOUT DIFFICULTY 1542 DR. ARCHER HERE TO VISIT WITH PATIENT.
== END 2022-03-07 15:52 | disposition home or self-care (01) ==
LOC: SDCO 12:48
DX: K74.60 Unspecified cirrhosis of liver (principal); I85.10 Secondary esophageal varices without bleeding; F17.210 Nicotine dependence, cigarettes, uncomplicated
CPT/HCPCS: J2704; J7120